=== PATIENT | female | born 1955 ===

== ENCOUNTER 2023-09-23 14:00 | Day surgery (SDC) | payer MEDICARE, BC ==
[~2023-09-23] VITALS: Ht 157.5 cm; Wt 105.9 kg
[~2023-09-23 14:00] MED LIST: Aspir 8181 MG PO; Balanced Salt Epinephrine Irrigation Solution 500 mL IR SCH; IBUP200 PO; Lidocaine HCl/Pf 1% 5 ML VIAL XX SCH; MASOPHEN325 M4 PO; Moxifloxacin HCL 0.5 MG/0.1 ML 0.4MLSYR LEFTEYE SCH; NAPROXEN PO; NS 500 ML IV ONE; PHENYLEPHRINE\\TROPICAMIDE\\TETRACAINE OPHTHALMIC DILATING SOLN LEFTEYE PRN; Povidone-Iodine 450 DROP/30 ML Solution LEFTEYE SCH; Povidone-Iodine 450 DROP/30 ML Solution ONE; Triamcinolone Inj Susp 40 MG / ML 1ML Vial INJ SCH; Triamcinolone Inj Susp 40 MG / ML 1ML Vial ONE
[2023-09-23] MEDS ORDERED: NS 500 ML IV ONE ×2 (14:17→14:44)
[2023-09-23] MEDS ORDERED: FISH OIL 1,0001 EA10 PO (14:20)
--- NOTE | 2023-09-23 14:32 | NUR ---
09/23/23 1432 Marge Mcbride IN AT 1420 TED IN AT 1424 CALL LIGHT AT BEDSIDE
[2023-09-23] MEDS ORDERED: Midazolam HCl 1MG / ML 2ML Vial ONE (14:59)
[2023-09-23] MEDS ORDERED: FentaNYL Citrate 50 MCG/ML 2 ML Injection ONE (14:59)
[2023-09-23] MEDS ORDERED: Tetracaine HCl 0.5% Opth Soln 15 ml LEFTEYE ONE (14:59)
== END 2023-09-23 15:43 | disposition home or self-care (01) ==
LOC: ORSCSDS 14:00
PROVIDERS: Ophthalmology
PROC: 08RK3JZ Replacement of Left Lens with Synthetic Substitute, Percutaneous Approach (ICD-10-PCS; principal; 2023-09-23 15:00)
DX: H25.13 Age-related nuclear cataract, bilateral (principal); E66.01 Morbid (severe) obesity due to excess calories; Z68.41 Body mass index [BMI] 40.0-44.9, adult; Z79.82 Long term (current) use of aspirin
CPT/HCPCS: J2250; J3010; J3301; J7040; V2632